=== PATIENT | male | born 2000 | race African-American/Black ===

== ENCOUNTER 2024-11-05 15:52 | Emergency (ER) | payer MEDICAID ==
[~2024-11-05] VITALS: Ht 175.3 cm; Wt 91.0 kg
[2024-11-05 16:01] VITALS: BP 126/80; RESP 18; TEMP 99.7; O2SAT 100
[2024-11-05 16:03] VITALS: PULSE 79; O2SAT 98
[2024-11-05] MEDS: KETOROLAC 15MG/ML VIAL IM ONE (18:11)
[2024-11-05] MEDS ORDERED: NAPR-1176 MT (18:51)
[2024-11-05] MEDS ORDERED: LIDO700A15 TP (18:51)
== END 2024-11-05 21:08 | disposition left against medical advice (07) ==
LOC: ER 15:52
DX: T14.8XXA Other injury of unspecified body region, initial encounter (principal); J45.909 Unspecified asthma, uncomplicated; Z79.1 Long term (current) use of non-steroidal anti-inflammatories (NSAID); Z98.890 Other specified postprocedural states; W34.00XA Accidental discharge from unspecified firearms or gun, initial encounter; Y93.89 Activity, other specified; Y92.89 Other specified places as the place of occurrence of the external cause; Y99.8 Other external cause status
CPT/HCPCS: 99283; 96372; J1885